=== PATIENT | male | born 1985 | race Caucasian/White ===

== ENCOUNTER 2019-01-24 17:55 | Emergency (ER) | payer BC ==
[~2019-01-24] VITALS: Ht 177.8 cm; Wt 97.5 kg
[2019-01-24 18:05] VITALS: BP 139/81
--- NOTE | 2019-01-24 18:10 | NUR ---
33 YEAR OLD MALE [id number] FROM HOME C/O L UPPER BACK SPASMS X TODAY AT 1500. ALERT AND OREINTED X4 BREATHING EVEN AND UNLABORED WITH NO DISTRESS NOTED. SKIN WARM TO TOUCH AND INTACT. AWAITING TO BE SEEN BY
[2019-01-24] MEDS ORDERED: KETOROLAC TROMETHAMINE 15 MG/ML VIAL ONE (18:42)
[2019-01-24] MEDS ORDERED: DIAZEPAM 5 MG TABLET ONE (18:42)
[2019-01-24] MEDS ORDERED: KETOROLAC TROMETHAMINE INJ 60 MG/2 ML VIAL IM ONE (19:00)
[2019-01-24] MEDS ORDERED: DIAZEPAM 5 MG TABLET PO ONE (19:00)
--- NOTE | 2019-01-24 19:17 | NUR ---
PATIENT IS CALM AND RELAXED AFTER MEDICATIONS WERE ADMINISTERED. WILL CONTINUE TO MONITOR. PAIN LEVEL DECREASE 6/10
[2019-01-24] MEDS ORDERED: HYDROCODONE/APAP 5/325MG 1 EACH TABLET PO ONE (20:30)
[2019-01-24] MEDS ORDERED: HYDROCODONE/APAP 5/325MG 1 EACH TABLET ONE (20:30)
--- NOTE | 2019-01-24 22:31 | NUR ---
PT REFUSED, SWEETIE. WASTED WITH ISABELA SOLIS
--- NOTE | 2019-01-24 22:31 | NUR ---
PT REFUSED SWEETIE, WASTED WITH ISABELA ECHAVARRIA
== END 2019-01-24 20:58 | disposition home or self-care (01) ==
LOC: ER 17:58
DX: M54.6 Pain in thoracic spine (principal); Z88.2 Allergy status to sulfonamides
CPT/HCPCS: 96372; 99283; J1885